=== PATIENT | female | born 1990 | race Caucasian/White ===

== ENCOUNTER 2016-09-20 17:39 | Emergency (ER) | payer OTHER ==
[~2016-09-20] VITALS: Ht 154.9 cm; Wt 49.9 kg
[~2016-09-20 17:39] MED LIST: ATARAX,VISTARIL25 MG PO; MUPIROCIN22 GM TP; ZOFRAN4 MG PO
[2016-09-20 17:57] VITALS: BP 124/87
[2016-09-20 18:24] LABS: HEMATOCRIT 36.3 % (36.0-46.0); MCH 30.3 PG (29.0-34.0); MCHC 35.3 G/DL (30.0-36.0); MEAN PLAT.VOLUME 8.2 uM^3 (9.5-12.4); PLATELET COUNT 243 K/uL (156-360); RBC DIS.WIDTH-CV 11.8 % (11.8-14.6); RBC DIS.WIDTH-SD 36.6 % (39-53); RED BLOOD COUNT 4.22 M/uL (3.80-5.20); WHITE BLOOD COUNT 8.9 K/uL (4.1-10.2)
[2016-09-20 18:39] LABS: ADD MIUA? YES; BILIRUBIN NEGATIVE; BLOOD NEGATIVE; COLOR YELLOW ((YELLOW)); GLUCOSE (STRIP) NEGATIVE; KETONES NEGATIVE; LEUKOCYTES MODERATE; NITRITE NEGATIVE; PROTEIN (STRIP) 30; SPECIFIC GRAVITY 1.019 (1.000-1.030); UROBILINOGEN 0.2 MG/DL (0.2-1.0)
[2016-09-20 18:45] LABS: CHLORIDE 106 mEq/L (99-109); POTASSIUM 3.6 mEq/L (3.7-5.4); SODIUM 138 mEq/L (136-147)
[2016-09-20 18:47] LABS: GLUCOSE 116 mg/dL (70-99)
[2016-09-20 18:48] LABS: ANION GAP 8 MEQ/L (2-14)
[2016-09-20 18:49] LABS: TOTAL BILIRUBIN 0.4 mg/dL (0.0-1.0)
[2016-09-20 18:51] LABS: ALKALINE PHOSPHATASE 57 IU/L (3-129); GFR ESTIMATE (CALCULATED) > 59 mL/min/
[2016-09-20 18:52] LABS: UREA NITROGEN (BUN) 13 mg/dL (9-23)
[2016-09-20 18:53] LABS: BACTERIA RARE /HPF; EPITHELIAL CELLS 1+ /HPF; MUCUS 1+ /LPF; RED BLOOD CELLS 0-5 /HPF (0-5); UCUL ADDED? NO
[2016-09-20 18:54] LABS: LIPASE 23 U/L (1.0-51.0)
[2016-09-20 19:00] LABS: QUANTITATIVE HCG < 4.0 MIU/ML
[2016-09-20] MEDS ORDERED: NAPROXEN500 MG PO (21:49)
== END 2016-09-20 22:41 | disposition left against medical advice (07) ==
LOC: EME 17:39
PROVIDERS: Physician Assistant
DX: R10.9 Unspecified abdominal pain (principal); Z87.442 Personal history of urinary calculi; Z88.6 Allergy status to analgesic agent
CPT/HCPCS: 74176; 80053; 81003; 83690; 84702; 85027; 99281; 99284

== ENCOUNTER 2016-12-04 22:10 | Emergency (ER) | payer OTHER ==
[~2016-12-04] VITALS: Ht 152.4 cm; Wt 45.5 kg
[~2016-12-04 22:10] MED LIST changes: +NAPROXEN500 MG PO
[2016-12-04 23:04] LABS: HEMATOCRIT 39.1 % (36.0-46.0); MCH 29.7 PG (29.0-34.0); MCV 87.3 FL (83-99); MEAN PLAT.VOLUME 8.7 uM^3 (9.5-12.4); PLATELET COUNT 323 K/uL (156-360); RBC DIS.WIDTH-CV 12.2 % (11.8-14.6); RBC DIS.WIDTH-SD 39.5 % (39-53); RED BLOOD COUNT 4.48 M/uL (3.80-5.20); WHITE BLOOD COUNT 11.1 K/uL (4.1-10.2)
[2016-12-04 23:13] LABS: CHLORIDE 109 mEq/L (99-109); POTASSIUM 3.8 mEq/L (3.7-5.4); SODIUM 144 mEq/L (136-147)
[2016-12-04 23:16] LABS: GLUCOSE 174 mg/dL (70-99)
[2016-12-04 23:17] LABS: ANION GAP 14 MEQ/L (2-14); TOTAL BILIRUBIN 0.8 mg/dL (0.0-1.0)
[2016-12-04 23:19] LABS: ALKALINE PHOSPHATASE 59 IU/L (3-129); GFR ESTIMATE (CALCULATED) > 59 mL/min/
[2016-12-04 23:20] LABS: UREA NITROGEN (BUN) 17 mg/dL (9-23)
[2016-12-04 23:28] LABS: QUANTITATIVE HCG < 4.0 MIU/ML
[2016-12-05 00:19] LABS: LIPASE 18 U/L (1.0-51.0)
[2016-12-05 02:28] LABS: ADD MIUA? YES; BILIRUBIN NEGATIVE; BLOOD NEGATIVE; COLOR YELLOW ((YELLOW)); GLUCOSE (STRIP) NEGATIVE; KETONES 20; LEUKOCYTES TRACE; NITRITE POSITIVE; PROTEIN (STRIP) NEGATIVE; UROBILINOGEN 0.2 MG/DL (0.2-1.0)
[2016-12-05] MEDS ORDERED: PYRIDIUM200 MG PO (02:39)
[2016-12-05] MEDS ORDERED: ZOFRAN ODT4 MG PO (02:39)
[2016-12-05] MEDS ORDERED: KEFLEX500 MG PO (02:39)
[2016-12-05 02:40] LABS: BACTERIA NONE SEEN /HPF; EPITHELIAL CELLS RARE /HPF; MUCUS TRACE /LPF; RED BLOOD CELLS 0-5 /HPF (0-5); UCUL ADDED? YES
[2016-12-05 02:59] VITALS: BP 109/83
== END 2016-12-05 03:03 | disposition home or self-care (01) ==
LOC: EME 22:10
DX: N39.0 Urinary tract infection, site not specified (principal); Q43.3 Congenital malformations of intestinal fixation; Z87.442 Personal history of urinary calculi
CPT/HCPCS: 74020; 74177; 80053; 81003; 83690; 84702; 85027; 87077; 87086; 87186; 99281; 99285; J2270; J2405; J3010; J7030

== ENCOUNTER 2017-01-17 11:52 | Emergency (ER) | payer OTHER ==
[~2017-01-17] VITALS: Ht 154.9 cm; Wt 46.7 kg
[~2017-01-17 11:52] MED LIST changes: +KEFLEX500 MG PO; +PYRIDIUM200 MG PO; +ZOFRAN ODT4 MG PO
[2017-01-17 14:47] LABS: HEMATOCRIT 34.3 % (36.0-46.0); MCH 29.9 PG (29.0-34.0); MCHC 34.4 G/DL (30.0-36.0); MCV 87.1 FL (83-99); MEAN PLAT.VOLUME 8.5 uM^3 (9.5-12.4); PLATELET COUNT 255 K/uL (156-360); RBC DIS.WIDTH-CV 12.7 % (11.8-14.6); RBC DIS.WIDTH-SD 40.3 % (39-53); RED BLOOD COUNT 3.94 M/uL (3.80-5.20); WHITE BLOOD COUNT 5.4 K/uL (4.1-10.2)
[2017-01-17 14:56] LABS: CHLORIDE 105 mEq/L (99-109); POTASSIUM 3.7 mEq/L (3.7-5.4); SODIUM 137 mEq/L (136-147)
[2017-01-17 14:58] LABS: GLUCOSE 115 mg/dL (70-99)
[2017-01-17 14:59] LABS: ANION GAP 8 MEQ/L (2-14)
[2017-01-17 15:02] LABS: GFR ESTIMATE (CALCULATED) > 59 mL/min/
[2017-01-17 15:03] LABS: UREA NITROGEN (BUN) 7 mg/dL (9-23)
[2017-01-17 15:08] LABS: TROP-I INTERPRETATION NEGATIVE; TROPONIN-I < 0.01 ng/mL (0.0-0.30)
[2017-01-17 15:50] LABS: ADD MIUA? YES; BILIRUBIN NEGATIVE; BLOOD NEGATIVE; COLOR YELLOW ((YELLOW)); GLUCOSE (STRIP) NEGATIVE; KETONES NEGATIVE; LEUKOCYTES MODERATE; NITRITE NEGATIVE; PROTEIN (STRIP) NEGATIVE; SPECIFIC GRAVITY 1.011 (1.000-1.030); UROBILINOGEN 0.2 MG/DL (0.2-1.0)
[2017-01-17 16:29] LABS: AMORPHOUS URATES CRYSTALS 4+; BACTERIA 2+ /HPF; EPITHELIAL CELLS 2+ /HPF; MUCUS NONE SEEN /LPF; RED BLOOD CELLS 0-5 /HPF (0-5); UCUL ADDED? YES
[2017-01-17 17:41] VITALS: BP 00/0
== END 2017-01-17 17:42 | disposition left against medical advice (07) ==
LOC: EME 11:52
PROVIDERS: Physician Assistant Medical
DX: J45.909 Unspecified asthma, uncomplicated (principal); N39.0 Urinary tract infection, site not specified; R07.9 Chest pain, unspecified; M54.5 Low back pain; Z87.442 Personal history of urinary calculi; F32.9 Major depressive disorder, single episode, unspecified
CPT/HCPCS: 71020; 80048; 81003; 84484; 85027; 87077; 87086; 87186; 93005; 94640; 94640 76; 99281; 99284; J1885

== ENCOUNTER 2017-02-04 23:45 | Emergency (ER) | payer OTHER ==
[~2017-02-04] VITALS: Ht 154.9 cm; Wt 47.7 kg
[2017-02-05 00:51] LABS: HEMATOCRIT 30.6 % (36.0-46.0); MCH 29.9 PG (29.0-34.0); MCHC 34.6 G/DL (30.0-36.0); MCV 86.2 FL (83-99); MEAN PLAT.VOLUME 8.9 uM^3 (9.5-12.4); PLATELET COUNT 286 K/uL (156-360); RBC DIS.WIDTH-CV 12.1 % (11.8-14.6); RBC DIS.WIDTH-SD 38.1 % (39-53); RED BLOOD COUNT 3.55 M/uL (3.80-5.20); WHITE BLOOD COUNT 5.6 K/uL (4.1-10.2)
[2017-02-05 00:59] LABS: CHLORIDE 109 mEq/L (99-109); POTASSIUM 3.7 mEq/L (3.7-5.4); SODIUM 140 mEq/L (136-147)
[2017-02-05 01:00] LABS: GLUCOSE 86 mg/dL (70-99)
[2017-02-05 01:02] LABS: ANION GAP 10 MEQ/L (2-14)
[2017-02-05 01:04] LABS: GFR ESTIMATE (CALCULATED) > 59 mL/min/
[2017-02-05 01:05] LABS: UREA NITROGEN (BUN) 16 mg/dL (9-23)
[2017-02-05 01:13] LABS: QUANTITATIVE HCG < 4.0 MIU/ML
[2017-02-05 03:21] VITALS: BP 112/77
== END 2017-02-05 03:31 | disposition home or self-care (01) ==
LOC: EME 23:45
PROVIDERS: Emergency Medicine
DX: N93.8 Other specified abnormal uterine and vaginal bleeding (principal); R10.30 Lower abdominal pain, unspecified; J45.909 Unspecified asthma, uncomplicated; F32.9 Major depressive disorder, single episode, unspecified; Z87.442 Personal history of urinary calculi
CPT/HCPCS: 74177; 80048; 84702; 85027; 99281; 99285; J1885; J7030

== ENCOUNTER 2017-04-14 03:03 | Emergency (ER) | payer OTHER ==
[~2017-04-14] VITALS: Ht 154.9 cm; Wt 48.1 kg
[2017-04-14 03:49] LABS: APPEARANCE CLEAR ((CLEAR)); BILIRUBIN NEGATIVE; BLOOD SMALL; COLOR COLORLESS ((YELLOW)); GLUCOSE (STRIP) NEGATIVE; KETONES NEGATIVE; LEUKOCYTES NEGATIVE; NITRITE NEGATIVE; PROTEIN (STRIP) NEGATIVE; SPECIFIC GRAVITY 1.003 (1.000-1.030); UROBILINOGEN 0.2 MG/DL (0.2-1.0)
[2017-04-14 03:52] LABS: HEMATOCRIT 35.7 % (36.0-46.0); HEMOGLOBIN 12.7 G/DL (11.9-15.5); MCH 30.1 PG (29.0-34.0); MCHC 35.6 G/DL (30.0-36.0); MCV 84.6 FL (83-99); PLATELET COUNT 259 K/uL (156-360); RBC DIS.WIDTH-CV 11.9 % (11.8-14.6); RBC DIS.WIDTH-SD 36.3 % (39-53); RED BLOOD COUNT 4.22 M/uL (3.80-5.20); WHITE BLOOD COUNT 7.2 K/uL (4.1-10.2)
[2017-04-14 03:55] LABS: BACTERIA NONE SEEN /HPF; EPITHELIAL CELLS NONE SEEN /HPF; MUCUS NONE SEEN /LPF; RED BLOOD CELLS 0-5 /HPF (0-5); UCUL ADDED? NO; WHITE BLOOD CELLS 0-5 /HPF (0-5)
[2017-04-14 04:02] LABS: ALBUMIN 4.2 g/dL (3.2-4.8); CHLORIDE 107 mEq/L (99-109); POTASSIUM 4.3 mEq/L (3.7-5.4); SODIUM 139 mEq/L (136-147)
[2017-04-14 04:05] LABS: GLUCOSE 93 mg/dL (70-99); TOTAL PROTEIN 7.4 g/dL (6.4-8.3)
[2017-04-14 04:07] LABS: TOTAL BILIRUBIN 0.2 mg/dL (0.0-1.0)
[2017-04-14 04:08] LABS: ALKALINE PHOSPHATASE 66 IU/L (3-129); CREATININE 0.8 mg/dL (0.6-1.3); GFR ESTIMATE (CALCULATED) > 59 mL/min/
[2017-04-14 04:09] LABS: UREA NITROGEN (BUN) 18 mg/dL (9-23)
[2017-04-14 04:10] LABS: AST (GOT) 26 IU/L (2-34)
[2017-04-14 04:11] LABS: ALT (GPT) 24 IU/L (3-49)
[2017-04-14 04:17] LABS: QUANTITATIVE HCG < 4.0 MIU/ML
[2017-04-14] MEDS ORDERED: ZOFRAN4 MG PO (05:16)
[2017-04-14] MEDS ORDERED: AUGMENTIN875 MG PO (05:16)
[2017-04-14 06:11] VITALS: BP 121/72
== END 2017-04-14 06:12 | disposition home or self-care (01) ==
LOC: EME 03:03
DX: H66.91 Otitis media, unspecified, right ear (principal); R11.2 Nausea with vomiting, unspecified; J02.9 Acute pharyngitis, unspecified; R10.9 Unspecified abdominal pain; J45.909 Unspecified asthma, uncomplicated; Z87.442 Personal history of urinary calculi; Z88.5 Allergy status to narcotic agent
CPT/HCPCS: 80053; 81003; 84702; 85027; 87651 90; 99281; 99284

== ENCOUNTER 2017-05-09 13:50 | Emergency (ER) | payer OTHER ==
[~2017-05-09] VITALS: Ht 154.9 cm; Wt 47.8 kg
[~2017-05-09 13:50] MED LIST changes: +AUGMENTIN875 MG PO
[2017-05-09 14:45] VITALS: BP 132/74
== END 2017-05-09 17:17 | disposition left against medical advice (07) ==
LOC: EME 13:50
DX: H57.12 Ocular pain, left eye (principal); H53.8 Other visual disturbances; Z53.21 Procedure and treatment not carried out due to patient leaving prior to being seen by health care provider

== ENCOUNTER 2017-05-15 03:48 | Emergency (ER) | payer OTHER ==
[~2017-05-15] VITALS: Ht 157.5 cm; Wt 43.4 kg
[2017-05-15 04:17] LABS: HEMATOCRIT 37.7 % (36.0-46.0); HEMOGLOBIN 13.5 G/DL (11.9-15.5); MCH 30.8 PG (29.0-34.0); MCHC 35.8 G/DL (30.0-36.0); MCV 85.9 FL (83-99); PLATELET COUNT 329 K/uL (156-360); RBC DIS.WIDTH-CV 12.5 % (11.8-14.6); RBC DIS.WIDTH-SD 39.1 % (39-53); RED BLOOD COUNT 4.39 M/uL (3.80-5.20); WHITE BLOOD COUNT 13.6 K/uL (4.1-10.2)
[2017-05-15 04:24] LABS: ALBUMIN 4.7 g/dL (3.2-4.8)
[2017-05-15 04:25] LABS: CHLORIDE 107 mEq/L (99-109); SODIUM 138 mEq/L (136-147)
[2017-05-15 04:27] LABS: GLUCOSE 137 mg/dL (70-99); TOTAL PROTEIN 7.8 g/dL (6.4-8.3)
[2017-05-15 04:29] LABS: TOTAL BILIRUBIN 0.8 mg/dL (0.0-1.0)
[2017-05-15 04:30] LABS: ALKALINE PHOSPHATASE 65 IU/L (3-129)
[2017-05-15 04:31] LABS: CREATININE 0.8 mg/dL (0.6-1.3); GFR ESTIMATE (CALCULATED) > 59 mL/min/
[2017-05-15 04:32] LABS: AST (GOT) 14 IU/L (2-34); UREA NITROGEN (BUN) 18 mg/dL (9-23)
[2017-05-15 04:33] LABS: ALT (GPT) 14 IU/L (3-49)
[2017-05-15 04:34] LABS: LIPASE 9 U/L (1.0-51.0)
[2017-05-15 05:00] LABS: QUANTITATIVE HCG < 4.0 MIU/ML
[2017-05-15] MEDS ORDERED: ZOFRAN4 MG PO (05:22)
[2017-05-15] MEDS ORDERED: PEPCID20 MG PO (05:22)
[2017-05-15] MEDS ORDERED: BENTYL10 MG PO (05:22)
[2017-05-15 05:27] LABS: APPEARANCE CLEAR ((CLEAR)); BILIRUBIN NEGATIVE; BLOOD NEGATIVE; COLOR YELLOW ((YELLOW)); GLUCOSE (STRIP) NEGATIVE; KETONES 20; LEUKOCYTES MODERATE; NITRITE NEGATIVE; PROTEIN (STRIP) 30; UROBILINOGEN 0.2 MG/DL (0.2-1.0)
[2017-05-15 05:30] LABS: BACTERIA NONE SEEN /HPF; EPITHELIAL CELLS 1+ /HPF; MUCUS TRACE /LPF; UCUL ADDED? NO; WHITE BLOOD CELLS 0-5 /HPF (0-5)
[2017-05-15 06:48] VITALS: BP 134/98
[2017-05-16] MEDS ORDERED: ZOFRAN4 MG PO (02:07)
== END 2017-05-15 06:50 | disposition home or self-care (01) ==
LOC: EME 03:48
PROVIDERS: Physician Assistant
DX: R10.9 Unspecified abdominal pain (principal); R11.2 Nausea with vomiting, unspecified; J45.909 Unspecified asthma, uncomplicated; F32.9 Major depressive disorder, single episode, unspecified; Z87.442 Personal history of urinary calculi; Z88.5 Allergy status to narcotic agent
CPT/HCPCS: 74177; 80053; 81003; 83690; 84702; 85027; 99281; 99285; J2270; J2405; J2765; J3010; J7030; S0028

== ENCOUNTER 2017-05-15 21:21 | Emergency (ER) | payer OTHER ==
[~2017-05-15] VITALS: Ht 154.9 cm; Wt 45.4 kg
[~2017-05-15 21:21] MED LIST changes: +BENTYL10 MG PO; +PEPCID20 MG PO
[2017-05-16 00:14] LABS: HEMATOCRIT 34.1 % (36.0-46.0); MCH 30.8 PG (29.0-34.0); MCHC 35.2 G/DL (30.0-36.0); MCV 87.7 FL (83-99); PLATELET COUNT 271 K/uL (156-360); RBC DIS.WIDTH-CV 12.8 % (11.8-14.6); RBC DIS.WIDTH-SD 40.5 % (39-53); RED BLOOD COUNT 3.89 M/uL (3.80-5.20); WHITE BLOOD COUNT 8.3 K/uL (4.1-10.2)
[2017-05-16 00:22] LABS: CHLORIDE 108 mEq/L (99-109); POTASSIUM 3.9 mEq/L (3.7-5.4); SODIUM 140 mEq/L (136-147)
[2017-05-16 00:24] LABS: GLUCOSE 111 mg/dL (70-99)
[2017-05-16 00:28] LABS: CREATININE 0.8 mg/dL (0.6-1.3); GFR ESTIMATE (CALCULATED) > 59 mL/min/
[2017-05-16 00:29] LABS: UREA NITROGEN (BUN) 16 mg/dL (9-23)
[2017-05-16 00:36] LABS: QUANTITATIVE HCG < 4.0 MIU/ML
[2017-05-16 01:25] LABS: APPEARANCE CLOUDY ((CLEAR)); BILIRUBIN NEGATIVE; BLOOD NEGATIVE; COLOR AMBER ((YELLOW)); GLUCOSE (STRIP) NEGATIVE; KETONES NEGATIVE; LEUKOCYTES LARGE; NITRITE NEGATIVE; PROTEIN (STRIP) 30; SPECIFIC GRAVITY 1.031 (1.000-1.030)
[2017-05-16 01:46] LABS: RED BLOOD CELLS 0-5 /HPF (0-5)
[2017-05-16 01:47] LABS: BACTERIA 2+ /HPF; EPITHELIAL CELLS 2+ /HPF; MUCUS 3+ /LPF; UCUL ADDED? YES
[2017-05-16] MEDS ORDERED: ZOFRAN4 MG PO (02:07)
[2017-05-16 02:46] VITALS: BP 118/77
== END 2017-05-16 02:47 | disposition home or self-care (01) ==
LOC: EME 21:21
PROVIDERS: Nurse Practitioner Family
DX: R10.31 Right lower quadrant pain (principal); J45.909 Unspecified asthma, uncomplicated; F32.9 Major depressive disorder, single episode, unspecified; Z87.442 Personal history of urinary calculi; Z88.5 Allergy status to narcotic agent
CPT/HCPCS: 76705; 76856; 80048; 81003; 84702; 85027; 87086; 99281; 99284; J1885; J2405; J3010; J7030

== ENCOUNTER 2017-06-01 20:55 | Emergency (ER) | payer OTHER ==
[~2017-06-01] VITALS: Ht 154.9 cm; Wt 44.9 kg
[2017-06-01 21:05] VITALS: BP 118/93
== END 2017-06-01 21:00 | disposition left against medical advice (07) ==
LOC: EME 20:55
DX: Z04.71 Encounter for examination and observation following alleged adult physical abuse (principal); S09.90XA Unspecified injury of head, initial encounter; Y04.2XXA Assault by strike against or bumped into by another person, initial encounter; Z53.21 Procedure and treatment not carried out due to patient leaving prior to being seen by health care provider

== ENCOUNTER 2017-06-16 08:53 | Emergency (ER) | payer OTHER ==
[~2017-06-16] VITALS: Ht 154.9 cm; Wt 45.0 kg
[2017-06-16 08:55] VITALS: BP 131/78
[2017-06-16] MEDS ORDERED: KEFLEX500 MG PO (11:14)
[2017-06-16] MEDS ORDERED: BACTRIM,SEPT1 TABLET PO (11:14)
[2017-06-16] MEDS ORDERED: MOTRIN600 MG PO (11:14)
== END 2017-06-16 11:50 | disposition home or self-care (01) ==
LOC: EME 08:53
PROC: 2W3CX1Z Immobilization of Right Lower Arm using Splint (ICD-10-PCS; principal; 2017-06-16)
DX: L03.113 Cellulitis of right upper limb (principal); S62.322D Displaced fracture of shaft of third metacarpal bone, right hand, subsequent encounter for fracture with routine healing; Z47.89 Encounter for other orthopedic aftercare; Z87.442 Personal history of urinary calculi; Z90.49 Acquired absence of other specified parts of digestive tract; Z88.6 Allergy status to analgesic agent
CPT/HCPCS: 73130; 99281; 99285

== ENCOUNTER 2017-07-08 17:41 | Emergency (ER) | payer OTHER ==
[~2017-07-08] VITALS: Ht 154.9 cm; Wt 45.4 kg
[~2017-07-08 17:41] MED LIST changes: +BACTRIM,SEPT1 TABLET PO; +MOTRIN600 MG PO
[2017-07-08] MEDS ORDERED: NAPROSYN500 MG PO (20:34)
[2017-07-08 20:59] VITALS: BP 143/122
== END 2017-07-08 20:59 | disposition home or self-care (01) ==
LOC: EME 17:41
DX: T84.220A Displacement of internal fixation device of bones of hand and fingers, initial encounter (principal); S60.221A Contusion of right hand, initial encounter; W50.0XXA Accidental hit or strike by another person, initial encounter; Z98.890 Other specified postprocedural states; Z88.5 Allergy status to narcotic agent
CPT/HCPCS: 73130; 99281; 99283; J2270

== ENCOUNTER 2017-07-11 13:51 | Emergency (ER) | payer OTHER ==
[~2017-07-11] VITALS: Ht 154.9 cm; Wt 45.7 kg
[~2017-07-11 13:51] MED LIST changes: +NAPROSYN500 MG PO
[2017-07-11 17:16] VITALS: BP 134/86
== END 2017-07-11 17:18 | disposition home or self-care (01) ==
LOC: EME 13:51
DX: G89.18 Other acute postprocedural pain (principal); M79.641 Pain in right hand; G89.29 Other chronic pain; S62.302A Unspecified fracture of third metacarpal bone, right hand, initial encounter for closed fracture; J45.909 Unspecified asthma, uncomplicated; F32.9 Major depressive disorder, single episode, unspecified; Z79.3 Long term (current) use of hormonal contraceptives; Z87.442 Personal history of urinary calculi; Z88.5 Allergy status to narcotic agent
CPT/HCPCS: 99281; 99284; J2270

== ENCOUNTER 2017-07-24 02:29 | Emergency (ER) | payer OTHER ==
[~2017-07-24] VITALS: Ht 154.9 cm; Wt 46.8 kg
[2017-07-24 03:04] LABS: HEMATOCRIT 35.2 % (36.0-46.0); MCH 30.5 PG (29.0-34.0); MCHC 34.1 G/DL (30.0-36.0); MCV 89.3 FL (83-99); PLATELET COUNT 315 K/uL (156-360); RBC DIS.WIDTH-CV 12.7 % (11.8-14.6); RBC DIS.WIDTH-SD 41.7 % (39-53); RED BLOOD COUNT 3.94 M/uL (3.80-5.20); WHITE BLOOD COUNT 7.7 K/uL (4.1-10.2)
[2017-07-24 03:15] LABS: CHLORIDE 105 mEq/L (99-109); POTASSIUM 3.7 mEq/L (3.7-5.4); SODIUM 142 mEq/L (136-147)
[2017-07-24 03:16] LABS: GLUCOSE 85 mg/dL (70-99)
[2017-07-24 03:20] LABS: CREATININE 0.8 mg/dL (0.6-1.3); GFR ESTIMATE (CALCULATED) > 59 mL/min/
[2017-07-24 03:21] LABS: UREA NITROGEN (BUN) 12 mg/dL (9-23)
[2017-07-24 04:34] LABS: APPEARANCE CLEAR ((CLEAR)); BILIRUBIN NEGATIVE; BLOOD MODERATE; COLOR STRAW ((YELLOW)); GLUCOSE (STRIP) NEGATIVE; KETONES NEGATIVE; LEUKOCYTES TRACE; NITRITE NEGATIVE; PROTEIN (STRIP) NEGATIVE; SPECIFIC GRAVITY 1.006 (1.000-1.030); UROBILINOGEN 0.2 MG/DL (0.2-1.0)
[2017-07-24 04:37] LABS: BACTERIA RARE /HPF; EPITHELIAL CELLS 1+ /HPF; MUCUS TRACE /LPF; RED BLOOD CELLS 0-5 /HPF (0-5); UCUL ADDED? YES
[2017-07-24 05:04] LABS: SOURCE URINE
[2017-07-24 05:29] LABS: QUANTITATIVE HCG < 4.0 MIU/ML
[2017-07-24] MEDS ORDERED: MIRALAX17 GM PO (06:22)
[2017-07-24] MEDS ORDERED: LEVSIN0.125 MG PO (06:22)
[2017-07-24] MEDS ORDERED: MOBIC7.5 MG PO (06:24)
[2017-07-24 06:53] VITALS: BP 127/81
[2017-07-24 09:26] LABS: TREPONEMA ANTIBODY NEGATIVE (NEGATIVE)
[2017-07-24 13:55] LABS: CHLAMYDIA TRACHOMATIS NEGATIVE; NEISSERIA GONORRHOEAE NEGATIVE
== END 2017-07-24 06:55 | disposition home or self-care (01) ==
LOC: EME 02:29
DX: R10.9 Unspecified abdominal pain (principal); K59.00 Constipation, unspecified; Z20.2 Contact with and (suspected) exposure to infections with a predominantly sexual mode of transmission; J45.909 Unspecified asthma, uncomplicated; F32.9 Major depressive disorder, single episode, unspecified; Z87.442 Personal history of urinary calculi; Z87.440 Personal history of urinary (tract) infections; Z88.8 Allergy status to other drugs, medicaments and biological substances
CPT/HCPCS: 74177; 80048; 81003; 84702; 85027; 86780; 87086; 87491; 87591; 99281; 99285; J0561; J0696; J2765; J7120

== ENCOUNTER 2017-07-30 01:51 | Emergency (ER) | payer OTHER ==
[~2017-07-30] VITALS: Ht 154.9 cm; Wt 47.1 kg
[~2017-07-30 01:51] MED LIST changes: +LEVSIN0.125 MG PO; +MIRALAX17 GM PO; +MOBIC7.5 MG PO
[2017-07-30 01:53] VITALS: BP 128/104
[2017-07-30] MEDS ORDERED: NORCO 5/3251 TABLET PO (02:59)
== END 2017-07-30 03:40 | disposition home or self-care (01) ==
LOC: EME 01:51
DX: Z48.89 Encounter for other specified surgical aftercare (principal); M79.644 Pain in right finger(s); M25.531 Pain in right wrist; Z98.890 Other specified postprocedural states; Z88.5 Allergy status to narcotic agent
CPT/HCPCS: 73130; 99281; 99284

== ENCOUNTER 2017-08-13 22:10 | Emergency (ER) | payer OTHER ==
[~2017-08-13] VITALS: Ht 154.9 cm; Wt 47.9 kg
[~2017-08-13 22:10] MED LIST changes: +NORCO 5/3251 TABLET PO
[2017-08-13] MEDS ORDERED: KEFLEX500 MG PO (23:32)
[2017-08-13] MEDS ORDERED: NEURONTIN300 MG PO (23:32)
[2017-08-13 23:46] VITALS: BP 129/93
== END 2017-08-13 23:48 | disposition home or self-care (01) ==
LOC: EME 22:10
DX: M79.641 Pain in right hand (principal); G89.29 Other chronic pain; F32.9 Major depressive disorder, single episode, unspecified; J45.909 Unspecified asthma, uncomplicated; Z87.442 Personal history of urinary calculi; Z88.8 Allergy status to other drugs, medicaments and biological substances
CPT/HCPCS: 99281; 99283

== ENCOUNTER 2017-09-17 21:19 | Emergency (ER) | payer OTHER ==
[~2017-09-17] VITALS: Ht 154.9 cm; Wt 50.0 kg
[~2017-09-17 21:19] MED LIST changes: +NEURONTIN300 MG PO
[2017-09-17 22:17] LABS: HEMATOCRIT 36.3 % (36.0-46.0); HEMOGLOBIN 12.7 G/DL (11.9-15.5); MCH 30.9 PG (29.0-34.0); MCV 88.3 FL (83-99); PLATELET COUNT 236 K/uL (156-360); RBC DIS.WIDTH-CV 11.9 % (11.8-14.6); RBC DIS.WIDTH-SD 38.6 % (39-53); RED BLOOD COUNT 4.11 M/uL (3.80-5.20); WHITE BLOOD COUNT 5.8 K/uL (4.1-10.2)
[2017-09-17 22:26] LABS: ALBUMIN 4.5 g/dL (3.2-4.8)
[2017-09-17 22:27] LABS: CHLORIDE 106 mEq/L (99-109); POTASSIUM 3.8 mEq/L (3.7-5.4); SODIUM 145 mEq/L (136-147)
[2017-09-17 22:29] LABS: GLUCOSE 85 mg/dL (70-99); TOTAL PROTEIN 7.7 g/dL (6.4-8.3)
[2017-09-17 22:31] LABS: TOTAL BILIRUBIN 0.3 mg/dL (0.0-1.0)
[2017-09-17 22:32] LABS: SERUM ETHYL ALCOHOL 207 mg/dL
[2017-09-17 22:33] LABS: ALKALINE PHOSPHATASE 172 IU/L (3-129); CREATININE 0.8 mg/dL (0.6-1.3); GFR ESTIMATE (CALCULATED) > 59 mL/min/
[2017-09-17 22:34] LABS: AST (GOT) 53 IU/L (2-34)
[2017-09-17 22:35] LABS: UREA NITROGEN (BUN) 7 mg/dL (9-23)
[2017-09-17 22:36] LABS: SALICYLATE < 5.0 MG/DL (15-30)
[2017-09-17 22:37] LABS: ACETAMINOPHEN (TYLENOL) < 10 mcg/mL (10-30); ALT (GPT) 63 IU/L (3-49)
[2017-09-17 22:42] LABS: QUANTITATIVE HCG < 4.0 MIU/ML
[2017-09-17 23:10] LABS: APPEARANCE SL.HAZY ((CLEAR)); BILIRUBIN NEGATIVE; BLOOD LARGE; COLOR YELLOW ((YELLOW)); GLUCOSE (STRIP) NEGATIVE; KETONES NEGATIVE; LEUKOCYTES NEGATIVE; NITRITE NEGATIVE; PROTEIN (STRIP) 30; SPECIFIC GRAVITY 1.012 (1.000-1.030); UROBILINOGEN 0.2 MG/DL (0.2-1.0)
[2017-09-17 23:19] LABS: BACTERIA NONE SEEN /HPF; EPITHELIAL CELLS 2+ /HPF; MUCUS TRACE /LPF; RED BLOOD CELLS 20-30 /HPF (0-5); UCUL ADDED? NO; WHITE BLOOD CELLS 0-5 /HPF (0-5)
[2017-09-17 23:28] LABS: AMPHETAMINE NEGATIVE (500 ng/mL); BENZODIAZEPINES PRESUMPTIVE POSITIVE (150 ng/mL); COCAINE PRESUMPTIVE POSITIVE (150 ng/mL); METHAMPHETAMINE NEGATIVE (500 ng/mL); OPIATES (MORPHINE) NEGATIVE (100 ng/mL); PHENCYCLIDINE NEGATIVE (25 ng/mL); THC CANNABINOIDS NEGATIVE (50 ng/mL); TRICYCLIC ANTIDEPRESSANTS NEGATIVE (300 ng/mL)
[2017-09-17 23:29] LABS: BARBITURATES NEGATIVE (200 ng/mL); BUPRENORPHINE PRESUMPTIVE POSITIVE (10 ng/mL); METHADONE NEGATIVE (200 ng/mL); OXYCODONE PRESUMPTIVE POSITIVE (100 ng/mL); PROPOXYPHENE NEGATIVE (300 ng/mL)
[2017-09-18 00:20] LABS: BENZODIAZEPINES, URINE SCREEN POSITIVE (200 ng/mL)
[2017-09-18 05:57] VITALS: BP 141/93
== END 2017-09-18 05:58 | disposition home or self-care (01) ==
LOC: EME 21:19
PROVIDERS: Physician Assistant
DX: F33.1 Major depressive disorder, recurrent, moderate (principal); F10.129 Alcohol abuse with intoxication, unspecified; J45.909 Unspecified asthma, uncomplicated; F32.9 Major depressive disorder, single episode, unspecified; Y90.7 Blood alcohol level of 200-239 mg/100 ml; Z87.442 Personal history of urinary calculi; Z90.49 Acquired absence of other specified parts of digestive tract; Z88.5 Allergy status to narcotic agent
CPT/HCPCS: 80053; 81003; 84702; 84999; 85027; 90839; 99281; 99285; G0480

== ENCOUNTER 2017-11-29 17:57 | Emergency (ER) | payer OTHER ==
[~2017-11-29] VITALS: Ht 154.9 cm; Wt 47.3 kg
[2017-11-29] MEDS ORDERED: FLEXERIL10 MG PO (19:20)
[2017-11-29] MEDS ORDERED: KEFLEX500 MG PO (19:20)
[2017-11-29 19:45] VITALS: BP 126/78
== END 2017-11-29 19:55 | disposition home or self-care (01) ==
LOC: EME 17:57 → RME 17:57
DX: L02.413 Cutaneous abscess of right upper limb (principal); M65.821 Other synovitis and tenosynovitis, right upper arm; G89.29 Other chronic pain
CPT/HCPCS: 73080; 99281; 99283